=== PATIENT | female | born 1930 | race Caucasian/White ===

== ENCOUNTER → 2017-07-23 | Outpatient (CLI) | payer MEDICARE, OTHER | END | disposition home or self-care (01) | LOC: KCIC DEXA 11:22 | DX: M81.0 Age-related osteoporosis without current pathological fracture (principal) | CPT/HCPCS: 77080 ==

== ENCOUNTER → 2018-03-14 | Outpatient (CLI) | payer MEDICARE ==
--- NOTE | 2018-03-14 13:55 | KCIC ---
EXAM: Chest, 2 views. HISTORY: Cough. COMPARISON: None. FINDINGS: 2 views of the chest are obtained. There is linear right middle and lower lobe atelectasis, infiltrate or scarring. There is eventration of the right hemidiaphragm. There is no pleural effusion or pneumothorax. The heart is normal in size. There is a small nodular opacity overlying the right upper lobe. IMPRESSION: 1. Linear right middle and lower lobe atelectasis, infiltrate or scarring. 2. Mild eventration of the right hemidiaphragm. 3. Small nodular opacity within the right upper lobe. This may be due to overlying artifact. Radiographic follow-up can be performed to confirm stability or resolution. Electronically signed by: Amanda Harper MD (03/14/2018 1:51 PM) [place] [id number]
== END | disposition home or self-care (01) ==
LOC: KCIC 11:16
PROVIDERS: ATTEND Preventive Medicine Public Health & General Preventive Medicine
DX: R05 Cough (principal); R91.8 Other nonspecific abnormal finding of lung field
CPT/HCPCS: 71046

== ENCOUNTER → 2018-04-16 | Outpatient (CLI) | payer MEDICARE ==
--- NOTE | 2018-04-16 12:04 | KCIC ---
Examination: CT chest without contrast HISTORY: History of lung nodule, chronic cough COMPARISON: None available Technique: Axial CT images of the chest were performed without contrast. Coronal and sagittal deformities are performed Exposure: One or more of the following individualized dose reduction techniques were utilized for this examination: 1. Automated exposure control 2. Adjustment of the mA and/or kV according to patient size 3. Use of iterative reconstruction technique FINDINGS: The visualized thyroid gland grossly appears unremarkable and central airways are patent The ascending aorta measures 3.8 cm in transverse dimension. The descending thoracic aorta measures 2.9 cm in transverse dimension. Coronary artery calcifications. Prominent mediastinal lymph nodes identified with 1.7 cm lymph node in the precarinal region. The subcarinal region lymph node measures 2.9 cm in transverse dimension. Bronchiectatic changes identified in the right middle lobe, bibasilar lungs with the focus of airspace opacity likely pneumonia or atelectasis in the right middle lobe of the lung. Minimal bronchiectatic changes identified in the left lingula of the lung. No evidence of pleural effusion or pneumothorax. The visualized noncontrasted liver, spleen, adrenals grossly appears unremarkable Moderate degenerative changes thoracic spine. IMPRESSION: 1. Bilateral lung bronchiectatic changes most in the right middle lobe of the lung with focus of airspace opacity identified in the right middle lobe of the lung likely atelectasis or infiltrate. Follow-up to resolution. Neoplasm is not completely excluded. 2. Enlarged lymph nodes identified in the mediastinum, nonspecific. Could be reactive or granulomatous disease or metastasis. Electronically signed by: Chance Roberts MD (04/16/2018 11:59 AM) [place] [id number]
== END | disposition home or self-care (01) ==
LOC: KCIC CT 11:05
PROVIDERS: ATTEND Preventive Medicine Public Health & General Preventive Medicine
DX: J47.9 Bronchiectasis, uncomplicated (principal); R59.0 Localized enlarged lymph nodes; I25.10 Atherosclerotic heart disease of native coronary artery without angina pectoris
CPT/HCPCS: 71250